=== PATIENT | male | born 1950 | race Two or more races ===

== ENCOUNTER 2022-06-29 22:13 | Observation (INO) | payer SELFPAY ==
--- NOTE | ~2022-06-29 | US_ITS ---
EXAMINATION: US carotid duplex BI DATE: 06/30/2022 12:36 INDICATION: Neurologic deficits with left arm and hand disturbance of skin sensation. TECHNIQUE: Grayscale, color Doppler, and pulsed Doppler images of the cervical carotid arteries were obtained. The degree of vessel stenosis is placed in one of the following categories: normal, <50%, 5 0-69%, >=70% but less than near-occlusion, near-occlusion, or total occlusion. Note that percent sten osis relative to normal distal artery lumen diameter is indirectly measured from velocity measurement s as described by Simeon, et al. Radiology 2003; 229:340-346. COMPARISON: None. FINDINGS: RIGHT: The right common carotid artery (CCA) peak systolic velocity (PSV) is 95 cm/s. The right internal car otid artery (ICA) PSV is 60 cm/s. The right ICA end-diastolic velocity (EDV) is 18 cm/s. The right IC A/CCA PSV ratio is 0.6. Grayscale and color Doppler images yield an estimate of <50% diameter reducti on from intimal thickening and minimal plaque in the ICA. The external carotid artery (ECA) PSV is 82 cm/s. There is antegrade flow in the right vertebral artery. LEFT: The left CCA PSV is 79 cm/s. The left ICA PSV is 64 cm/s. The left ICA EDV is 27 cm/s. The left ICA/C CA PSV ratio is 0.8. Grayscale and color Doppler images yield an estimate of <50% diameter reduction from small amount of plaque in the ICA. The ECA PSV is 86 cm/s. There is antegrade flow in the left v ertebral artery. IMPRESSION: 1. <50% stenosis in the right internal carotid artery. 2. <50% stenosis in the left internal carotid artery. Reviewed, dictated and finalized at location A. DING COORDINATOR
--- NOTE | ~2022-06-29 | CT_ITS ---
Non-contrast Head CT History: Left-sided weakness Technique: Axial non-contrast imaging of the brain was performed. Dose reduction technique was used on this scan by utilizing automated exposure control and iterative reconstruction technique. The dose -length product (DLP) was 605.33 mGy-cm. Findings: There is no evidence of intracranial hemorrhage, mass lesion, or acute infarct. Brain par enchyma appears normal. The ventricles and subarachnoid spaces are normal in size. The calvarium ap pears normal. The visualized paranasal sinuses and mastoid air cells are clear. Impression: No significant abnormality seen. Reviewed, dictated and finalized at location . MANAGEMENT ASSISTANT Impression: No significant abnormality seen.
--- NOTE | ~2022-06-29 | MR_ITS ---
MRI of the brain Clinical History: Acute neurologic deficit Technique: Axial and sagittal T1-weighted images were acquired. These were followed by axial T2-weigh toby, diffusion weighted, gradient, and FLAIR images. Following intravenous administration of 15 cc Mu ltiHance gadolinium, T1-weighted fat-sat imaging was performed in the axial and coronal planes. Findings: There is no acute infarct, intracranial hemorrhage, or mass lesion. There are mild to moder ate chronic white matter changes in the periventricular white matter bilaterally. Ventricles and sulci right groin spaces are unremarkable. Orbits are unremarkable. Minimal sinus dise ase noted in the ethmoid sinuses and right maxillary sinus. Major intracranial flow voids appear inta ct. Sagittal midline structures are intact. No abnormal postcontrast enhancement identified. IMPRESSION: No acute intracranial abnormality. Mild to moderate chronic white matter changes. Minimal sinus disease, as above. Reviewed, dictated and finalized at [facility]. LEADER
--- NOTE | ~2022-06-29 | XR_ITS ---
EXAMINATION: XR chest 2V Exam Date/Time: 06/29/2022 22:47 NEGATIVE CLEANER HISTORY: Chest pain and left side body numbness x today Comparison: None available. RESULT: Lines, tubes, and devices: None. Lungs and pleura: Clear. Cardiomediastinal silhouette: Unremarkable. Other: No acute osseous or upper abdominal finding. IMPRESSION: No acute cardiopulmonary process. Reviewed, dictated and finalized at location K. TIVE CLEANER
[2022-06-29 22:15] VITALS: BP 191/82; PULSE 61; RESP 16; TEMP 36.2; O2SAT 100
--- NOTE | 2022-06-29 22:20 | ECG_ITS ---
Measurements Intervals [place] Rate: 62 P: 36 [place]: 171 QRS: 1 QRSD: 104 T: 42 QT: 413 QTc: 420 Interpretive Statements SINUS RHYTHM NORMAL ECG NO PREVIOUS ECG AVAILABLE FOR COMPARISON Electronically Signed On 06-30-2022 8:13:05 SMOKING TOBACCO PACKING MACHINE HAND by Chun Chaidez D.O.
[2022-06-29 23:00] LABS: Basophils Absolute Auto 0.1 K/mm3 (0.0-0.1); Basophils Percent Auto 0.9 % (0.2-1.2); Eosinophils Absolute Auto 0.9 K/mm3 (0-0.3); Hematocrit 39.8 % (42.0-52.0); Hemoglobin 12.9 g/dL (14.0-18.0); Immature Granulocyte Absolute 0.03 K/mm3 (0.00-0.031); Immature Granulocyte Percent A 0.3 % (0-0.5); Lymphocytes Absolute Auto 2.73 K/mm3 (0.9-3.2); Lymphocytes Percent Auto 30.9 % (18.3-44.2); Mean Corpuscular HGB Conc 32.4 g/dl (32-36); Mean Corpuscular Hemoglobin 29.3 pg (26-34); Mean Corpuscular Volume 90.2 fl (80-100); Mean Platelet Volume 9.6 fl (7.4-10.4); Monocytes Absolute Auto 0.7 K/mm3 (0.1-0.6); Monocytes Percent Auto 8.1 % (2.6-8.5); Neutrophils Absolute Auto 4.4 K/mm3 (1.3-6.7); Neutrophils Percent Auto 49.8 % (45.5-73.1); Platelet Count Result 258 k/mm3 (150-375); Red Blood Count 4.41 M/mm3 (4.6-6.20); Red Cell Distribution Width 11.1 % (11.5-14.5); White Blood Count 8.8 K/mm3 (4.5-10.0)
[2022-06-29 23:08] LABS: INR 1.1; Prothrombin Time 13.4 Seconds (11.1-14.7)
[2022-06-29 23:09] LABS: Alanine Aminotransferase 20 U/L (6-50); Albumin Level 4.3 g/dL (3.5-5.1); Alkaline Phosphatase 71 U/L (38-126); Anion Gap 7 mmol/L (8-16); Aspartate Amino Transferase 20 U/L (17-59); Bilirubin,Total 0.5 mg/dL (0.2-1.3); Blood Urea Nitrogen 19 mg/dL (9-20); Carbon Dioxide 24 mmol/L (22-30); Chloride 103 mmol/L (98-107); Estimated CRCL calculation 54 ml/min; Estimated Glomerular Filt Rate > 60; Glucose 160 mg/dL (65-110); Lipase 109 U/L (23-300); Partial Thromboplastin Time 29.4 SECONDS (22.3-36.8); Potassium 3.6 mmol/L (3.4-5.0); Sodium 134 mmol/L (137-145)
[2022-06-29 23:21] LABS: Troponin I < 0.012 ng/mL (0.000-0.034)
[2022-06-30] VITALS (44 sets, daily range): BP systolic 123–157; BP diastolic 74–100; PULSE 49–66; RESP 9–16; TEMP 36.3–36.5; O2SAT 93–100
--- NOTE | 2022-06-30 01:46 | PC.NURSE ---
Pt taken Losartan 25mg while in waiting room.
[2022-06-30 02:21] LABS: Troponin I < 0.012 ng/mL (0.000-0.034)
[2022-06-30 05:47] LABS: Troponin I < 0.012 ng/mL (0.000-0.034)
--- NOTE | 2022-06-30 05:56 | ED.GENADULT ---
HPI - General Adult General Chief complaint: Chest Pain Stated complaint: CP radiating into left arm Time Seen by Provider: 06/30/22 01:54 History of Present Illness HPI narrative: Patient is a 71-year-old male who presents ER with multiple concerns. First concern is around noon on 06/29/2022 patient began developing some weakness in his left leg that caused him difficulty to ambulate up some stairs. He then took a nap. Son noticed that he was still not feeling right later in the day and checked on him. Around 930 patient was reporting that he is having numbness and heaviness in his left arm as well. At that time he is also having some left-sided chest heaviness. No history of heart disease. It was noted that patient's blood pressure was in the 190s at home which is atypical for him. Patient cannot describe aggravating or alleviating factors or chest discomfort at this time. No history of heart disease. No history of CVA. He is known to have elevated cholesterol for which she does not take medication. He does take antihypertensives. Review of Systems Review of Systems: All systems reviewed & are unremarkable except as noted in HPI and below Constitutional: Constitutional: Denies chills, Denies fatigue and Denies fever(s) Cardiovascular: Cardiovascular: Reports chest pain, Denies rapid heart rate and Denies radiating jaw, neck or arm pain Respiratory: Respiratory: Denies cough and Denies dyspnea Gastrointestinal: Gastrointestinal: Denies abdominal pain, Denies nausea and Denies vomiting Neurologic: Denies syncope, Reports focal weakness and Reports numbness PMFSH Past Medical History Medical History (Updated 06/30/22 @ 06:28 by Jose Mclean MD) Hyperlipidemia Hypertension Surgical History Surgical History (Updated 06/30/22 @ 05:57 by Jose Mclean MD) No pertinent past surgical history Exam Narrative: GENERAL: Well-appearing, well-nourished, and in no acute distress. HEAD: Normocephalic, atraumatic. EYES: PERRL and EOMI. ENT: Mucous membranes moist. CHEST: Clear to auscultation. No respiratory distress. HEART: Regular rate and rhythm. Normal peripheral pulses. EXTREMITIES: Normal range of motion. No edema. SKIN: Warm, dry, no rash. NEURO: Patient ambulates with some unsteadiness due to feeling numb in his left leg and like it will not follow what he wanted to do. There is no upper or lower extremity drift and [id number] testing and finger-nose testing were negative. Gross sensation was normal. No facial asymmetry. No reported slurred speech by son as patient speaks Farsi. Alert and oriented x3. PSYCH: Normal mood and affect. Course Course Emergency Course: I had a long conversation with the patient's son/patient/patient's . Discussed my concerns for possible CVA given difficulty with ambulation and continued heaviness in the left leg. Patient be admitted to the hospitalist service for observation and for MRI and further evaluation. There is ultimately concerned due to cost because of insurance issues but given the symptoms family agrees that it is pertinent to get this care. Vital Signs Vital signs: Vital Signs Temperature 97.2 F L 06/29/22 22:15 Pulse Rate 61 06/29/22 22:15 Respiratory Rate 16 06/29/22 22:15 Blood Pressure 191/82 H 06/29/22 22:15 Pulse Oximetry 100 06/29/22 22:15 Oxygen Delivery Room Air 06/29/22 22:15 Temperature 97.2 F L 06/29/22 22:15 Pulse Rate 59 L 06/30/22 06:01 Respiratory Rate 12 06/30/22 06:01 Blood Pressure 141/90 H 06/30/22 06:01 Pulse Oximetry 98 06/30/22 06:01 Oxygen Delivery Room Air 06/29/22 22:15 Medical Decision Making Vital Signs Vital Signs: Vital Signs Temperature 97.2 F L 06/29/22 22:15 Pulse Rate 61 06/29/22 22:15 Respiratory Rate 16 06/29/22 22:15 Blood Pressure 191/82 H 06/29/22 22:15 Pulse Oximetry 100 06/29/22 22:15 Oxygen Delivery Room Air 06/29/22 22:15 Temperature
[2022-06-30 06:02] LABS: Influenza A QL RT-PCR Negative (Negative); Influenza B QL RT-PCR Negative (Negative); RSV RNA, RT-PCR Negative (Negative); SARS-CoV-2 RNA PCR Negative
--- NOTE | 2022-06-30 08:24 | ADMGEN ---
This patient, Rossy Hebert, was admitted to IMU Room 206-02. Patient/family oriented to hospital policies and general routines including ID bracelet, bed and alarms, visiting hours, pain management, procedures, bathroom and other care routines, personal items, smoking policy, room service/diet, and visiting hours. Information on how to activate the Rapid Response Team has been discussed. Patient/Family are encouraged to report perceived risks to care and to ask questions if they do not understand what they are told or what they should do.
[2022-06-30 11:02] LABS: LDL Cholesterol Direct 102 mg/dL
[2022-06-30 11:03] LABS: Anion Gap 4 mmol/L (8-16); Blood Urea Nitrogen 19 mg/dL (9-20); Carbon Dioxide 28 mmol/L (22-30); Chloride 106 mmol/L (98-107); Cholesterol 216 mg/dL (0-200); Estimated CRCL calculation 54 ml/min; Estimated Glomerular Filt Rate > 60; Glucose 102 mg/dL (65-110); HDL Direct 66 mg/dL; Potassium 4.2 mmol/L (3.4-5.0); Sodium 138 mmol/L (137-145); Triglycerides 130 mg/dL (<150)
[2022-06-30 14:19] LABS: Hemoglobin A1C 4.8 % (<5.7)
--- NOTE | 2022-06-30 14:27 | PM.SD2 ---
Same Day Admit/Disch: HPI History of Present Illness Chief complaint: Stroke Symptoms/Chest Pain Narrative: Rossy Hebert is a 71 year old male with a history of hypertension and hyperlipidemia who presented to the emergency department on 06/30/2022 with stroke-like symptoms. The patient is here from [place] visiting his son. He does not speak Faroese and his son, Omega, acts as paraprofessional interpreter. Arm nakul reports that the patient is typically quite active. yesterday morning they were playing [employer] and after a couple of games, the patient stated he wanted to stop. His son felt that this was abnormal. The patient then complained of left leg discomfort and his son noticed that he was limping and had some difficulty going up the stairs. He then slept for the rest today, which was also abnormal for him. Around 9:00 p.m. they were eating dinner when he stood up from the table and complained of heaviness in the left side of his chest. After dinner, he excused himself from the table and his son later found him lying on the ground pressing on his chest with his right arm stating he could not move his left arm. His son noticed his left leg was shaking. at that time, arm on took his blood pressure and found it to be in the 190s systolic. The patient's son and the patient's were concerned by this and felt that he should seek medical care. Patient's son notes that he is typically resistant to medical care but they were able to talk him into coming for evaluation when he had difficulty standing and balancing. He notes that he needed assistance to get into the car. Upon presentation to the ED, his blood pressure was 191/82 with additional vital signs stable, laboratory workup was relatively unremarkable the exception of random glucose of 160. chest x-ray showed no acute cardiopulmonary findings an EKG showed sinus rhythm with no ST abnormalities. At the time of my evaluation, the patient was feeling improved. He denied have any chest pain but described left-sided fatigue in the chest wall. He was able to get up and walk around and able to walk to the bathroom, but noticed his left leg was moving a bit slower. He denies shortness of breath, palpitations, arm pain, jaw pain, numbness, or tingling. No headaches. No speech changes. No dysphagia. No facial drooping. No visual changes. He was admitted to the hospitalist service for further evaluation and management PMFSH Past Medical History Medical History (Updated 06/30/22 @ 14:55 by Sue Juarez PA-C) Hyperlipidemia Hypertension Surgical History Surgical History No pertinent past surgical history Family History Family History Father Acute myocardial infarction Sibling Acute myocardial infarction Mother Cerebrovascular accident Social History Social History Smoking status: Never smoker Alcohol intake: never Substance use: never Substance use type: does not use Lack of Transportation: No Lack of Food: Never True Current Housing: Decline to Answer Concerned About Future Housing: Decline to Answer Difficulty Paying Gas/Electric Bills: Decline to Answer Difficulty Paying for Meds: Decline to Answer Currently Unemployed: Decline to Answer Education: Master's Degree or Higher Difficulty w/ Childcare or Family Care: Decline to Answer Spiritual care concerns: No Same Day Admit/Disch: Med Pre-admit Medications Home Medications Medication Instructions Recorded Confirmed Type aspirin 81 mg capsule 81 mg PO DAILY #30 caps 06/30/22 Rx atorvastatin 40 mg tablet 40 mg PO DAILY #30 tabs 06/30/22 Rx clopidogrel 75 mg tablet 75 mg PO DAILY 21 days #21 tabs 06/30/22 Rx losartan 25 mg tablet 25 mg PO DAILY #30 tabs 06/30/22 Rx Exam Narrative: General: well-nourished, well-a
[2022-06-30] MEDS: ASPIRIN 325 MG TABLET PO (15:24)
[2022-06-30] MEDS: CLOPIDOGREL BISULFATE 300 MG TABLET PO (15:24)
== END 2022-06-30 15:37 | disposition home or self-care (01) ==
LOC: ANHED 06-30 06:28 → ANHIMU 06-30 07:32
PROVIDERS: Admitting Provider Internal Medicine; Emergency Provider Emergency Medicine; PCP Family Medicine; Visit Provider Physician Assistant
DX: G45.9 Transient cerebral ischemic attack, unspecified (principal); I10 Essential (primary) hypertension; R73.09 Other abnormal glucose; E78.5 Hyperlipidemia, unspecified; R07.89 Other chest pain; R90.82 White matter disease, unspecified; Z20.822 Contact with and (suspected) exposure to COVID-19; E78.00 Pure hypercholesterolemia, unspecified; Z82.49 Family history of ischemic heart disease and other diseases of the circulatory system; Z82.3 Family history of stroke; Z79.82 Long term (current) use of aspirin; Z79.01 Long term (current) use of anticoagulants; Z79.899 Other long term (current) drug therapy
CPT/HCPCS: 36415; 70450; 70553; 71046; 80048; 80053; 80061; 83036; 83690; 84484; 85025; 85610; 85730; 87637; 93005; 93880; 99285; A9270; A9577; G0378; G0379